=== PATIENT | female | born 1955 | race Two or more races ===

== ENCOUNTER 2022-03-06 06:11 | Inpatient (IN) | payer MEDICARE, MEDICAID ==
[2022-03-05 10:19] LABS: Basophils # (auto) 0 10 ^3/uL (0-0.2); Basophils % (auto) 0.5 % (0.0-2.0); Eosinophils # (auto) 0.2 10 ^3/uL (0-0.8); Eosinophils % (auto) 2.8 % (0.0-7.0); Hematocrit 42.3 % (36.0-46.0); Hemoglobin 13.8 g/dL (12.2-16.2); Lymphocytes # (auto) 2.3 10 ^3/uL (0.4-5.4); Lymphocytes % (auto) 29.9 % (10.0-50.0); Mean Corpuscular Hemoglobin 29.6 pg (28.0-32.0); Mean Corpuscular Hgb Conc. 32.7 g/dL (32.0-36.0); Mean Corpuscular Volume 90.7 fL (80.0-100.0); Monocytes # (auto) 0.6 10 ^3/uL (0-1.3); Neutrophils # (auto) 4.6 10 ^3/uL (1.6-8.6); Neutrophils % (auto) 58.8 % (37.0-80.0); Nucleated Red Blood Cells % 0.2 %; Red Blood Cells 4.66 10^6/uL (4.0-5.20); Red Cell Distribution Width 13.7 % (11.8-14.3); White Blood Cell 7.8 10^3/uL (4.4-10.8)
[2022-03-05 10:26] LABS: Urine Bacteria NONE SEEN /hpf (None Seen); Urine Blood Negative /uL (Negative); Urine WBC <1 /hpf (0 - 5)
[2022-03-05 10:35] LABS: INR 0.97 (0.9-1.15); Partial Thromboplastin Time 25.9 sec (23.6-33.0)
[2022-03-05 10:52] LABS: Potassium 3.3 mmol/L (3.5-5.1)
[2022-03-05 11:09] LABS: Albumin 3.5 g/dL (3.4-5.0); BUN/Creatinine Ratio 38.2; Bilirubin, Total 0.5 mg/dL (0.2-1.0); Calcium 9.1 mg/dL (8.5-10.1); Total Protein 7.5 g/dL (6.4-8.2)
[2022-03-06] VITALS (12 sets, daily range): BP systolic 95–126; BP diastolic 59–76
[~2022-03-06] VITALS: Ht 157.5 cm; Wt 116.6 kg
[~2022-03-06 06:11] MED LIST: ALEN70TA74 PO; AMLO-489 PO; CHOL20007 OR; LOSA-69 PO; MECL12.514 PO; OMEP20TA PO
[2022-03-06] MEDS ORDERED: ceFAZolin 1GM/50ML 100 ML IV ONE (07:53)
[2022-03-06] MEDS ORDERED: fentaNYL CITRATE 100 MCG/2 ML VL ONE (09:59)
[2022-03-06] MEDS ORDERED: MORPHINE SULF PF 5 MG/10 ML VIAL ONE (09:59)
[2022-03-06] MEDS ORDERED: MIDAZOLAM HCL 2MG/2ML 2ml VIAL (1mg/ml) ONE (09:59)
[2022-03-06] MEDS ORDERED: EPINEPHrine HCL 1 MG/1 ML AMP ONE (10:25)
[2022-03-06] MEDS ORDERED: TRANEXAMIC ACID 20 ML ONE (10:27)
[2022-03-06] MEDS ORDERED: TETRACAINE 1% INJ 2 ML VIAL IJ ONE (11:06)
[2022-03-06] MEDS ORDERED: ePHEDrine SULFATE 50 MG/ML AMP IV PRN (12:15)
[2022-03-06] MEDS ORDERED: MIDAZOLAM HCL 2MG/2ML 2ml VIAL (1mg/ml) IV PRN (12:15)
[2022-03-06] MEDS ORDERED: LABETALOL HCL 5 MG/ML 4ML SYRINGE IV PRN (12:15)
[2022-03-06] MEDS ORDERED: ONDANSETRON HCL 4 MG/2 ML VIAL IV PRN (12:15)
[2022-03-06] MEDS ORDERED: NALOXONE HCL 0.4 MG/ML VIAL IV PRN (12:15)
[2022-03-06] MEDS ORDERED: NALBUPHINE HCL 10 MG/1ml INJECTION SUBCUT ONE (12:15)
[2022-03-06] MEDS ORDERED: diphenhdrAMINE HCL 50 MG/1 ML VL IV PRN (12:15)
[2022-03-06] MEDS ORDERED: HYDROmorphone HCL 2 MG/ML VL/or syr IV PRN ×2 (12:15→14:00)
[2022-03-06] MEDS ORDERED: DexAMETHasone SOD PHOS 10MG/1ML VIAL INJ IV PRN (12:15)
[2022-03-06] MEDS: VANCOMYCIN HCL 1000 MG VL ONE ×2 (13:15→15:10)
[2022-03-06] MEDS ORDERED: oxyCODONE HCL 5MG TAB PO PRN ×2 (14:00)
[2022-03-06] MEDS ORDERED: DexAMETHasone SOD PHOS 10MG/1ML VIAL INJ IV ONE (14:19)
[2022-03-06] MEDS ORDERED: PROPOFOL 10 MG/ML 20 ML IV ONE (14:19)
[2022-03-06] MEDS: D5W/LACTATED RINGERS 1,000 ML IV SCH (15:35)
[2022-03-06] MEDS: ceFAZolin 2 GM in D5W 5% 100 ML IV SCH ×2 (16:39→22:27)
[2022-03-06] MEDS: KETOROLAC TROMETH 30 MG/ML 1ML VIAL IV SCH (18:48)
[2022-03-06] MEDS: ACETAMINOPHEN 325 MG TAB PO SCH (18:48)
[2022-03-06] MEDS: PREGABALIN 25 MG CAP PO SCH (22:26)
[2022-03-07] VITALS (15 sets, daily range): BP systolic 97–121; BP diastolic 53–66
[2022-03-07] MEDS: ACETAMINOPHEN 325 MG TAB PO SCH ×4 (01:30→18:25)
[2022-03-07] MEDS: KETOROLAC TROMETH 30 MG/ML 1ML VIAL IV SCH ×4 (01:30→18:24)
[2022-03-07] MEDS: D5W/LACTATED RINGERS 1,000 ML IV SCH ×3 (03:21→17:59)
[2022-03-07 06:28] LABS: Basophils # (auto) 0 10 ^3/uL (0-0.2); Basophils % (auto) 0.1 % (0.0-2.0); Eosinophils # (auto) 0 10 ^3/uL (0-0.8); Hematocrit 32.3 % (36.0-46.0); Lymphocytes % (auto) 8.7 % (10.0-50.0); Mean Corpuscular Hemoglobin 30.6 pg (28.0-32.0); Mean Corpuscular Volume 89.8 fL (80.0-100.0); Monocytes # (auto) 1.4 10 ^3/uL (0-1.3); Monocytes % (auto) 12.1 % (0.0-12.0); Neutrophils # (auto) 9.2 10 ^3/uL (1.6-8.6); Neutrophils % (auto) 79.1 % (37.0-80.0); Red Blood Cells 3.59 10^6/uL (4.0-5.20); Red Cell Distribution Width 13.6 % (11.8-14.3); White Blood Cell 11.7 10^3/uL (4.4-10.8)
[2022-03-07 06:38] LABS: BUN/Creatinine Ratio 33.3; Calcium 8.2 mg/dL (8.5-10.1); Potassium 3.6 mmol/L (3.5-5.1)
[2022-03-07] MEDS: PATIENTS OWN MEDICATION (Omeprazole (Gnp Omeprazole) 20 MG) PO SCH (10:00)
[2022-03-07] MEDS: amLODIPine BESYLATE 5 MG TAB PO SCH (10:50)
[2022-03-07] MEDS: ASPirin 81 mg TAB PO SCH ×2 (10:50→21:59)
[2022-03-07] MEDS: PREGABALIN 25 MG CAP PO SCH ×2 (10:51→21:59)
[2022-03-07] MEDS: LOSARTAN POTASSIUM 50 MG TAB PO SCH (10:51)
[2022-03-08] MEDS: ACETAMINOPHEN 325 MG TAB PO SCH ×3 (00:39→12:10)
[2022-03-08] MEDS: KETOROLAC TROMETH 30 MG/ML 1ML VIAL IV SCH ×3 (00:39→12:10)
[2022-03-08 04:47] VITALS: BP 101/50
[2022-03-08] MEDS: D5W/LACTATED RINGERS 1,000 ML IV SCH (06:12)
[2022-03-08 09:00] VITALS: BP 114/66
[2022-03-08] MEDS: ASPirin 81 mg TAB PO SCH (09:04)
[2022-03-08] MEDS: PATIENTS OWN MEDICATION (Omeprazole (Gnp Omeprazole) 20 MG) PO SCH (09:04)
[2022-03-08] MEDS: PREGABALIN 25 MG CAP PO SCH (09:05)
[2022-03-08] MEDS: LOSARTAN POTASSIUM 50 MG TAB PO SCH (09:05)
[2022-03-08] MEDS: amLODIPine BESYLATE 5 MG TAB PO SCH (09:06)
[2022-03-08 13:55] VITALS: BP 127/71
== END 2022-03-08 14:30 | disposition home health service (06) | DRG 470 ==
LOC: SUR 06:11 → TELE 13:58 → TELE-EAST 15:01
PROVIDERS: ADMIT Orthopaedic Surgery; ATTEND Orthopaedic Surgery
PROC: 0SRD069 Replacement of Left Knee Joint with Oxidized Zirconium on Polyethylene Synthetic Substitute, Cemented, Open Approach (ICD-10-PCS; principal; 2022-03-06 11:02)
DX: M17.12 Unilateral primary osteoarthritis, left knee (principal); Z20.822 Contact with and (suspected) exposure to COVID-19
CPT/HCPCS: 36415; 73560; 80048; 80053; 81001; 85025; 85610; 85730; 86850; 86900; 86901; G0378; J0171; J0690; J1100; J1885; J2250; J2704; J7060

== ENCOUNTER 2022-07-23 06:15 | Inpatient (IN) | payer MEDICARE, MEDICAID ==
[2022-06-22 10:22] LABS: Basophils # (auto) 0.1 10 ^3/uL (0-0.2); Basophils % (auto) 0.9 % (0.0-2.0); Eosinophils # (auto) 0.3 10 ^3/uL (0-0.8); Eosinophils % (auto) 4.5 % (0.0-7.0); Hematocrit 42.8 % (36.0-46.0); Lymphocytes # (auto) 1.8 10 ^3/uL (0.4-5.4); Lymphocytes % (auto) 25.5 % (10.0-50.0); Mean Corpuscular Hemoglobin 28.9 pg (28.0-32.0); Mean Corpuscular Hgb Conc. 32.7 g/dL (32.0-36.0); Mean Corpuscular Volume 88.5 fL (80.0-100.0); Monocytes # (auto) 0.7 10 ^3/uL (0-1.3); Monocytes % (auto) 9.9 % (0.0-12.0); Neutrophils # (auto) 4.2 10 ^3/uL (1.6-8.6); Neutrophils % (auto) 59.2 % (37.0-80.0); Nucleated Red Blood Cells % 0.1 %; Red Blood Cells 4.84 10^6/uL (4.0-5.20); Red Cell Distribution Width 14.6 % (11.8-14.3)
[2022-06-22 10:48] LABS: Potassium 3.7 mmol/L (3.5-5.1)
[2022-06-22 10:53] LABS: Urine Bacteria NONE SEEN /hpf (None Seen); Urine Blood Negative /uL (Negative); Urine Specific Gravity 1.009 (1.001-1.035); Urine WBC 3 /hpf (0 - 5)
[2022-06-22 11:00] LABS: Albumin 3.6 g/dL (3.4-5.0); BUN/Creatinine Ratio 20.6; Bilirubin, Total 0.6 mg/dL (0.2-1.0); Calcium 9.6 mg/dL (8.5-10.1); Total Protein 7.4 g/dL (6.4-8.2)
[2022-06-22 11:10] LABS: INR 0.95 (0.9-1.15); Partial Thromboplastin Time 26.6 sec (24.6-33.4)
[2022-07-20 14:57] LABS: Urine Bacteria NONE SEEN /hpf (None Seen); Urine Blood Negative /uL (Negative); Urine Mucus FEW (None Seen); Urine Specific Gravity 1.015 (1.001-1.035); Urine WBC 8 /hpf (0 - 5)
[2022-07-20 15:12] LABS: INR 0.95 (0.9-1.15); Partial Thromboplastin Time 27.9 sec (24.6-33.4)
[2022-07-20 15:17] LABS: Calcium 9.5 mg/dL (8.5-10.1); Potassium 3.6 mmol/L (3.5-5.1)
[2022-07-20 15:21] LABS: BUN/Creatinine Ratio 22.4; Bilirubin, Total 0.5 mg/dL (0.2-1.0); Total Protein 7.3 g/dL (6.4-8.2)
[2022-07-20 15:39] LABS: Basophils # (auto) 0.1 10 ^3/uL (0-0.2); Basophils % (auto) 0.9 % (0.0-2.0); Eosinophils # (auto) 0.3 10 ^3/uL (0-0.8); Eosinophils % (auto) 3.2 % (0.0-7.0); Hematocrit 43.3 % (36.0-46.0); Lymphocytes # (auto) 2.3 10 ^3/uL (0.4-5.4); Lymphocytes % (auto) 25.9 % (10.0-50.0); Mean Corpuscular Hemoglobin 28.5 pg (28.0-32.0); Mean Corpuscular Hgb Conc. 32.2 g/dL (32.0-36.0); Mean Corpuscular Volume 88.2 fL (80.0-100.0); Monocytes # (auto) 0.7 10 ^3/uL (0-1.3); Monocytes % (auto) 8.3 % (0.0-12.0); Neutrophils # (auto) 5.4 10 ^3/uL (1.6-8.6); Neutrophils % (auto) 61.7 % (37.0-80.0); Red Blood Cells 4.91 10^6/uL (4.0-5.20); Red Cell Distribution Width 14.4 % (11.8-14.3); White Blood Cell 8.7 10^3/uL (4.4-10.8)
[2022-07-23] VITALS (11 sets, daily range): BP systolic 91–117; BP diastolic 49–66
[~2022-07-23] VITALS: Ht 165.1 cm; Wt 96.4 kg
[~2022-07-23 06:15] MED LIST changes: +ASPI1TAB20 PO
[2022-07-23] MEDS ORDERED: TRANEXAMIC ACID 20 ML ONE (06:40)
[2022-07-23] MEDS ORDERED: BUPIVACAINE W/ EPINEPH 0.25% INJ 50ML MDV ONE (06:40)
[2022-07-23] MEDS ORDERED: VANCOMYCIN HCL 1000 MG VL ONE (06:41)
[2022-07-23] MEDS ORDERED: KETOROLAC TROMETH 30 MG/ML 1ML VIAL ONE (06:41)
[2022-07-23] MEDS ORDERED: ACETAMINOPHEN IV 100 ML IV ONE (06:59)
[2022-07-23] MEDS ORDERED: PREGABALIN CAPSULE 75 MG CAP PO ONE (07:00)
[2022-07-23] MEDS ORDERED: ACETAMINOPHEN IV 1000 MG/100ML (10MG/ML) IV ONE (07:00)
[2022-07-23] MEDS ORDERED: CELECOXIB 100 MG CAP PO ONE (07:00)
[2022-07-23] MEDS ORDERED: ceFAZolin 1GM/50ML 100 ML IV ONE (07:07)
[2022-07-23] MEDS ORDERED: TETRACAINE 1% INJ 2 ML VIAL IJ ONE (07:20)
[2022-07-23] MEDS ORDERED: MORPHINE SULF PF 5 MG/10 ML VIAL ONE (07:28)
[2022-07-23] MEDS ORDERED: MIDAZOLAM HCL 2MG/2ML 2ml VIAL (1mg/ml) ONE (07:30)
[2022-07-23] MEDS ORDERED: fentaNYL CITRATE 100 MCG/2 ML VL ONE (07:30)
[2022-07-23] MEDS ORDERED: PROPOFOL 10 MG/ML 20 ML IV ONE (08:15)
[2022-07-23] MEDS ORDERED: DexAMETHasone SOD PHOS 10MG/1ML VIAL INJ ONE (08:15)
[2022-07-23] MEDS ORDERED: HYDROmorphone HCL 2 MG/ML VL/or syr IV PRN ×2 (09:15→09:30)
[2022-07-23] MEDS ORDERED: OXYCODONE W/ ACETAMINOPHEN 5/325MG TABLET PO PRN (09:15)
[2022-07-23] MEDS ORDERED: NITROGLYCERIN 0.4 MG SL TAB SL PRN (09:15)
[2022-07-23] MEDS ORDERED: ONDANSETRON HCL 4 MG/2 ML VIAL IV PRN ×3 (09:15→09:30)
[2022-07-23] MEDS: ceFAZolin 1GM/50ML 50 ML IV SCH ×3 (09:15→22:14)
[2022-07-23] MEDS: LACTATED RINGER'S 1,000 ML IV SCH ×2 (09:15→20:00)
[2022-07-23] MEDS ORDERED: ACETAMINOPHEN 325 MG TAB PO PRN (09:15)
[2022-07-23] MEDS ORDERED: MORPHINE SULFATE INJ 2 MG/ml SYRG IV PRN (09:15)
[2022-07-23] MEDS ORDERED: BISACODYL 5 MG EC TAB PO PRN (09:15)
[2022-07-23] MEDS ORDERED: NALBUPHINE HCL 10 MG/1ml INJECTION SUBCUT ONE (09:30)
[2022-07-23] MEDS ORDERED: NALOXONE HCL 0.4 MG/ML VIAL IV PRN (09:30)
[2022-07-23] MEDS ORDERED: LABETALOL HCL 5 MG/ML 4ML SYRINGE IV PRN (09:30)
[2022-07-23] MEDS ORDERED: DexAMETHasone SOD PHOS 10MG/1ML VIAL INJ IV PRN (09:30)
[2022-07-23] MEDS ORDERED: MIDAZOLAM HCL 2MG/2ML 2ml VIAL (1mg/ml) IV PRN (09:30)
[2022-07-23] MEDS ORDERED: diphenhdrAMINE HCL 50 MG/1 ML VL IV PRN (09:30)
[2022-07-23] MEDS ORDERED: ePHEDrine SULFATE 50 MG/ML AMP IV PRN (09:30)
[2022-07-23] MEDS ORDERED: LOSARTAN POTASSIUM 50 MG TAB PO SCH (10:00)
[2022-07-23] MEDS ORDERED: amLODIPine BESYLATE 5 MG TAB PO SCH (10:00)
[2022-07-23] MEDS: PANTOPRAZOLE 40 MG TAB PO SCH (11:24)
[2022-07-23] MEDS: DOCUSATE SOD 100 MG CAP PO SCH ×2 (11:24→22:15)
[2022-07-23] MEDS: ENOXAPARIN SOD 40 MG/0.4 ML SYRINGE SC SCH (11:24)
[2022-07-23] MEDS ORDERED: cefTRIAXone 1GM/50ML D5W 50 ML IV ONE (14:00)
[2022-07-23] MEDS ORDERED: MECLIZINE HCL 25 MG TAB PO PRN (14:00)
[2022-07-23] MEDS: SODIUM CHLOR 0.9% PF (SALINE LOCK) 10ML VIAL/SYR IV SCH ×2 (14:22→22:15)
[2022-07-23] MEDS: OXYCODONE W/ ACETAMINOPHEN 5/325MG TABLET PO PRN (22:17)
[2022-07-24] VITALS (16 sets, daily range): BP systolic 83–114; BP diastolic 46–68
[2022-07-24] MEDS: SODIUM CHLOR 0.9% PF (SALINE LOCK) 10ML VIAL/SYR IV SCH ×3 (04:48→21:24)
[2022-07-24] MEDS: LACTATED RINGER'S 1,000 ML IV SCH (05:15)
[2022-07-24 05:16] LABS: Hematocrit 34.3 % (36.0-46.0); Hemoglobin 11.6 g/dL (12.2-16.2)
[2022-07-24 05:56] LABS: BUN/Creatinine Ratio 37.2; Potassium 4.6 mmol/L (3.5-5.1)
[2022-07-24 05:58] LABS: Albumin 3.1 g/dL (3.4-5.0); Bilirubin, Total 0.6 mg/dL (0.2-1.0); Calcium 8.7 mg/dL (8.5-10.1); Total Protein 5.8 g/dL (6.4-8.2)
[2022-07-24] MEDS: cefTRIAXone 1GM/50ML D5W 50 ML IV SCH (09:16)
[2022-07-24] MEDS: OXYCODONE W/ ACETAMINOPHEN 5/325MG TABLET PO PRN ×2 (09:17→21:25)
[2022-07-24] MEDS ORDERED: PANTOPRAZOLE 40 MG TAB PO SCH (10:00)
[2022-07-24] MEDS: PANTOPRAZOLE 40 MG TAB PO SCH (10:56)
[2022-07-24] MEDS: DOCUSATE SOD 100 MG CAP PO SCH ×2 (10:56→21:24)
[2022-07-24] MEDS: ENOXAPARIN SOD 40 MG/0.4 ML SYRINGE SC SCH (10:57)
[2022-07-24] MEDS: SODIUM CHLORIDE 0.9% 1,000 ML IV SCH (11:45)
[2022-07-24] MEDS ORDERED: PHENYLEPHRINE HCL 10 MG/ML VL IV ONE (13:32)
[2022-07-25 01:06] VITALS: BP 115/54
[2022-07-25 04:49] LABS: Basophils # (auto) 0 10 ^3/uL (0-0.2); Eosinophils # (auto) 0.3 10 ^3/uL (0-0.8); Eosinophils % (auto) 5.8 % (0.0-7.0); Hematocrit 27.8 % (36.0-46.0); Hemoglobin 9.3 g/dL (12.2-16.2); Lymphocytes # (auto) 1.1 10 ^3/uL (0.4-5.4); Lymphocytes % (auto) 22.3 % (10.0-50.0); Mean Corpuscular Hemoglobin 29.3 pg (28.0-32.0); Mean Corpuscular Hgb Conc. 33.3 g/dL (32.0-36.0); Monocytes # (auto) 0.6 10 ^3/uL (0-1.3); Neutrophils # (auto) 2.8 10 ^3/uL (1.6-8.6); Neutrophils % (auto) 58.9 % (37.0-80.0); Red Blood Cells 3.16 10^6/uL (4.0-5.20); Red Cell Distribution Width 14.6 % (11.8-14.3); White Blood Cell 4.7 10^3/uL (4.4-10.8)
[2022-07-25 05:08] LABS: BUN/Creatinine Ratio 55.3; Calcium 8.2 mg/dL (8.5-10.1)
[2022-07-25 05:27] VITALS: BP 108/59
[2022-07-25] MEDS: SODIUM CHLOR 0.9% PF (SALINE LOCK) 10ML VIAL/SYR IV SCH ×2 (05:44→14:00)
[2022-07-25] MEDS: SODIUM CHLORIDE 0.9% 1,000 ML IV SCH ×2 (07:45)
[2022-07-25 08:00] VITALS: BP 114/61
[2022-07-25] MEDS: cefTRIAXone 1GM/50ML D5W 50 ML IV SCH (08:20)
[2022-07-25] MEDS: PANTOPRAZOLE 40 MG TAB PO SCH (08:54)
[2022-07-25] MEDS: DOCUSATE SOD 100 MG CAP PO SCH (08:54)
[2022-07-25] MEDS: OXYCODONE W/ ACETAMINOPHEN 5/325MG TABLET PO PRN (08:54)
[2022-07-25] MEDS: ENOXAPARIN SOD 40 MG/0.4 ML SYRINGE SC SCH (08:54)
[2022-07-25 11:18] VITALS: BP 126/68
[2022-07-25 12:00] VITALS: BP 114/64
[2022-07-25 12:06] VITALS: BP 126/68
== END 2022-07-25 14:10 | disposition home or self-care (01) | DRG 470 ==
LOC: SUR 06:15 → OVERFLOW 09:08 → DOU IN ICU 10:43
PROVIDERS: ADMIT Orthopaedic Surgery Adult Reconstructive Orthopaedic Surgery; ATTEND Internal Medicine
PROC: 0SRC0J9 Replacement of Right Knee Joint with Synthetic Substitute, Cemented, Open Approach (ICD-10-PCS; 2022-07-23)
PROC: 8E0YXBZ Computer Assisted Procedure of Lower Extremity (ICD-10-PCS; principal; 2022-07-23 07:25)
DX: M17.11 Unilateral primary osteoarthritis, right knee (principal); N39.0 Urinary tract infection, site not specified; I10 Essential (primary) hypertension; Z20.822 Contact with and (suspected) exposure to COVID-19; E66.9 Obesity, unspecified; Z68.35 Body mass index [BMI] 35.0-35.9, adult
CPT/HCPCS: 36415; 73562; 80048; 80053; 81001; 85014; 85018; 85025; 85610; 85730; 86850; 86900; 86901; 87081; 97110; 97116; 97530; G0378; J0131; J0690; J0696; J1100; J1885; J2250; J2704